=== PATIENT | female | born 1990 | race Caucasian/White ===

== ENCOUNTER 2022-11-22 11:25 | Emergency (ER) | payer BC ==
[2022-11-22] MEDS ORDERED: DOXYCYCLINE 100 MG TABLET PO STA (11:57)
[2022-11-22] MEDS ORDERED: ONDANSETRON ODT 4 MG TABLET TL STA (11:57)
--- NOTE | 2022-11-22 12:01 | ED Physician Documentation ---
History of Present Illness - Stated complaint Stated Complaint: INSECT BITE - Chief complaint Chief Complaint: General - History obtained from History obtained from: Patient - History of Present Illness Timing: How many days ago (2-3) Pain level max: 0 Pain level now: 0 - Additonal information Additional information: Patient is a 32-year-old female who is concerned about potential Lyme disease. She states that she did not see a tick on her but she is from [place] and her 's bosses had Lyme disease. She also states that she was in [place] about a month ago. Does not recall any specific tick bites there either. She states that she noticed a target-like lesion on the right breast recently. She states she has also had nausea and vomiting. She has a history of migraines and does have a headache. No diarrhea or constipation. Denies any possibility of . Has a Nexplanon implant.No chest pain. No shortness of breath. Review of Systems Constitutional: reports: Chills. denies: Fever Throat: denies: Sore throat Respiratory: denies: Cough GI: denies: Vomiting Skin: denies: Rash Musculoskeletal: denies: Neck pain, Back pain PD PAST MEDICAL HISTORY - Past Medical History Past Medical History: No - Past Surgical History Past Surgical History: No - Present Medications Home Medications: Ambulatory Orders Medication Instructions Recorded Confirmed Doxycycline Monohydrate 100 mg PO BID #20 cap 11/22/22 Ondansetron Odt [Zofran] 4 mg TL Q6H PRN #10 tablet 11/22/22 - Allergies Allergies/Adverse Reactions: Allergies Allergy/AdvReac Type Severity Reaction Status Date / Time iodine Allergy Hives Verified 11/22/22 11:40 ketorolac [From Toradol] Allergy Hives Verified 11/22/22 11:41 Sulfa (Sulfonamide Allergy Hives Verified 11/22/22 11:40 Antibiotics) - Living Situation Living Situation: reports: With family Living Arrangement: reports: At home - Social History Does the pt have substance abuse?: No PD ED PE NORMAL - Vitals Vital signs reviewed: Yes - General General: Alert and oriented X 3, No acute distress - HEENT HEENT: PERRL, Moist mucous membranes - Neck Neck: Supple, no meningeal sign - Cardiac Cardiac: RRR, No murmur - Respiratory Respiratory: No respiratory distress, Clear bilaterally - Abdomen Abdomen: Soft, Non tender, Non distended - Derm Derm: Warm and dry - Extremities Extremities: No deformity, Other (small target like lesion to the L breast. no cellulitis. no warmth. no fluctuance. ) - Neuro Neuro: Alert and oriented X 3 - Psych Psych: Normal mood, Normal affect Results - Vitals Vitals: Vital Signs - 24 hr 11/22/22 11/22/22 11:35 12:48 Temperature 36.8 C Heart Rate 77 75 Respiratory 20 16 Rate Blood Pressure 158/116 H 158/104 H O2 Saturation 100 98 Oxygen O2 Source Room air PD Medical Decision Making - ED course Complexity details: considered differential, d/w patient ED course: Patient with potential Lyme exposure. The lesion could be consistent with EM. We will place her on doxycycline for 10 days. Also given Zofran and Phenergan here. We did discuss serological testing, but unlikely to be useful at this stage as we are treating her regardless. She may not of had time to develop antibodies to seroconvert either. We will have her follow-up with her doctor for further care. Patient is well-appearing, nontoxic. Afebrile. No evidence of sepsis. No evidence of disseminated Lyme. Patient counseled regarding signs and symptoms for which I believe and urgent re-evaluation would be necessary. Patient with good understanding of and agreement to plan and is comfortable going home at this time This document was made in part using voice recognition software. While efforts are made to proofread this document, sound alike and grammatical errors may occur. Departure - Departure Disposition: 01 Home, Self Care Clinical Impression: Tick bite Qualifiers: Encounter type: initial encounter Site of tick bite: unspecified site Qualified Code(s): W57.XXXA - Bitten or stung by nonvenomous insect and other nonvenomous arthropods, initial encounter Condition: Good Instructions: ED Bite Tick Abx Tx Follow-Up: your,doctor in 1 week [Other] Prescriptions: Doxycycline Monohydrate 100 mg PO BID #20 cap Ondansetron Odt [Zofran] 4 mg TL Q6H PRN #10 tablet PRN Reason: Nausea / Vomiting Comments: Your prescriptions were sent to [facility] in [place]. We are treating you for potential lyme disease. Please follow up with your doctor for further. Discharge Date/Time: 11/22/22 12:49
[2022-11-22] MEDS ORDERED: PROMETHAZINE 25 MG/1 ML VIAL IM STA (12:29)
[2022-11-22 12:51] VITALS: BP 158/104
== END 2022-11-22 12:49 | disposition home or self-care (01) ==
LOC: ED 11:25
DX: S21.052A Open bite of left breast, initial encounter (principal); W57.XXXA Bitten or stung by nonvenomous insect and other nonvenomous arthropods, initial encounter
CPT/HCPCS: 96372; 99283; A9270; Q0162